=== PATIENT | female | born 1955 | race African-American/Black ===

== ENCOUNTER → 2018-01-01 | Outpatient (CLI) | payer MEDICARE | END | disposition home or self-care (01) | LOC: CVU 10:33 | PROVIDERS: ATTEND Family Medicine | DX: I07.1 Rheumatic tricuspid insufficiency (principal); I50.32 Chronic diastolic (congestive) heart failure; J44.9 Chronic obstructive pulmonary disease, unspecified; G47.33 Obstructive sleep apnea (adult) (pediatric); E66.01 Morbid (severe) obesity due to excess calories | CPT/HCPCS: 93306 ==

== ENCOUNTER 2018-05-27 13:03 | Inpatient (IN) | payer MEDICARE ==
[~2018-05-27] VITALS: Ht 167.6 cm; Wt 173.1 kg
[2018-05-27] MEDS ORDERED: SODIUM CHLORIDE FLUSH 10ML SYR IVF ONE (13:30)
[2018-05-27] MEDS ORDERED: PLEASE ENTER ALLERGIES MC SCH (13:30)
[2018-05-27] MEDS ORDERED: methylPREDNISolone SOD SUCC 125 MG/2 ML IVP ONE (13:30)
[2018-05-27] MEDS ORDERED: methylPREDNISolone SOD SUCC 125 MG/2 ML ONE (13:34)
[2018-05-27 13:41] LABS: BASOPHILS # (AUTO) 0.03 x10^3/uL (0-0.1); BASOPHILS % (AUTO) 1 % (0-1); EOSINOPHILS # (AUTO) 0.33 x10^3/uL (0-0.4); EOSINOPHILS % (AUTO) 6 % (1-7); LYMPHOCYTES # (AUTO) 1.04 x10^3/uL (1-3.4); LYMPHOCYTES % (AUTO) 18 % (22-44); MD NO; MEAN CORPUSCULAR HGB CONC 32.5 g/dL (32.4-35.8); MEAN PLATELET VOLUME 7.9 fL (7.4-10.4); MONOCYTES # (AUTO) 0.64 x10^3/uL (0.2-0.8); MONOCYTES % (AUTO) 11 % (2-9); NEUTROPHILS % (AUTO) 65 % (42-75); PLATELET COUNT 272 x10^3/uL (130-400); RED BLOOD COUNT 5.56 x10^6/uL (3.82-5.3); RED CELL DISTRIBUTION WIDTH 14.3 % (9.6-15.2)
[2018-05-27 13:49] LABS: ALBUMIN 3.2 g/dL (3.4-5.0); ANION GAP 8 mmol/L (5-15); CALCIUM 8.5 mg/dL (8.5-10.1); CHLORIDE 101 mmol/L (98-107)
[2018-05-27 13:55] LABS: ALANINE AMINOTRANSFERASE 27 U/L (12-78); ALKALINE PHOSPHATASE 123 U/L (45-117); BILIRUBIN,TOTAL 0.4 mg/dL (0.2-1.0); CREATININE 0.86 mg/dL (0.55-1.02)
[2018-05-27] MEDS ORDERED: ALBUTEROL SULFATE 2.5 MG/3 ML NPPB ONE (14:30)
[2018-05-27] MEDS ORDERED: ALBUTEROL SULFATE 2.5 MG/3 ML ONE (14:47)
[2018-05-27] MEDS ORDERED: ALBUTEROL/IPRATROPIUM 2.5MG/0.5MG, 3 ML NPPB SCH (15:00)
[2018-05-27] MEDS: AZITHROMYCIN 500 MG in SODIUM CHLORIDE 0.9% 250 ML IV SCH (15:40)
[2018-05-27] MEDS ORDERED: FUROSEMIDE 20 MG TABLET PO SCH (17:00)
[2018-05-27] MEDS ORDERED: SPIR50TA4 PO (17:10)
[2018-05-27] MEDS ORDERED: POTA99TA8 PO (17:10)
[2018-05-27] MEDS ORDERED: FURO80TA3 PO (17:10)
[2018-05-27] MEDS: ENOXAPARIN 40 MG/0.4 ML SQ SCH (17:11)
[2018-05-27 17:13] VITALS: BP 119/83
[2018-05-27 18:50] LABS: RAPID INFLUENZA A Negative (Negative); RAPID INFLUENZA B Negative (Negative)
[2018-05-27] MEDS: ALBUTEROL/IPRATROPIUM 2.5MG/0.5MG, 3 ML NPPB SCH (20:31)
[2018-05-27] MEDS ORDERED: BUDESONIDE 0.5 MG/2 ML INHA INH SCH (21:00)
[2018-05-27] MEDS: methylPREDNISolone SOD SUCC 40 MG/ML IVPush SCH (22:42)
[2018-05-27 22:49] VITALS: BP 138/69
[2018-05-27] MEDS: GUAIFENESIN/DM 200-20MG, 10ML UDC PO PRN (23:06)
[2018-05-28] MEDS: ALBUTEROL/IPRATROPIUM 2.5MG/0.5MG, 3 ML NPPB SCH ×5 (03:07→20:00)
[2018-05-28 03:17] VITALS: BP 118/76
[2018-05-28] MEDS: GUAIFENESIN/DM 200-20MG, 10ML UDC PO PRN ×2 (03:42→22:55)
[2018-05-28] MEDS: methylPREDNISolone SOD SUCC 40 MG/ML IVPush SCH ×2 (05:35→17:48)
[2018-05-28] MEDS ORDERED: FUROSEMIDE 20 MG TABLET PO SCH (08:00)
[2018-05-28] MEDS ORDERED: FUROSEMIDE 40 MG TABLET PO SCH ×2 (09:00→13:00)
[2018-05-28] MEDS: FLUTICASONE/VILANTEROL 100-25MCG/INH INH SCH (09:00)
[2018-05-28] MEDS ORDERED: SPIRONOLACTONE 50 MG TABLET PO SCH (09:00)
[2018-05-28 09:07] VITALS: BP 126/69
[2018-05-28] MEDS ORDERED: IPRA3AMP30 NPPB (10:27)
[2018-05-28] MEDS: SPIRONOLACTONE 50 MG TABLET PO SCH ×2 (12:49→20:38)
[2018-05-28 13:05] VITALS: BP 124/70
[2018-05-28] MEDS: AZITHROMYCIN 500 MG in SODIUM CHLORIDE 0.9% 250 ML IV SCH (15:01)
[2018-05-28] MEDS: POTASSIUM CHLORIDE 10 MEQ TABLET.ER PO SCH (17:10)
[2018-05-28] MEDS: ENOXAPARIN 40 MG/0.4 ML SQ SCH (17:10)
[2018-05-28 19:29] VITALS: BP 115/75
[2018-05-28] MEDS ORDERED: ATOR40TA78 PO (20:52)
[2018-05-28] MEDS: ATORVASTATIN 40 MG HOMEMEDPO SCH (22:51)
[2018-05-29 00:47] VITALS: BP 102/67
[2018-05-29] MEDS ORDERED: ALBUTEROL/IPRATROPIUM 2.5MG/0.5MG, 3 ML NPPB PRN (03:30)
[2018-05-29] MEDS: methylPREDNISolone SOD SUCC 40 MG/ML IVPush SCH ×2 (06:18→17:38)
[2018-05-29 08:00] VITALS: BP 129/67
[2018-05-29] MEDS: ALBUTEROL/IPRATROPIUM 2.5MG/0.5MG, 3 ML NPPB SCH ×4 (08:06→19:01)
[2018-05-29] MEDS: FLUTICASONE/VILANTEROL 100-25MCG/INH INH SCH (09:03)
[2018-05-29] MEDS: GUAIFENESIN/DM 200-20MG, 10ML UDC PO PRN (09:06)
[2018-05-29] MEDS: FUROSEMIDE HOMEMEDPO SCH (09:10)
[2018-05-29] MEDS: SPIRONOLACTONE 50 MG HOMEMEDPO SCH ×2 (09:10→20:31)
[2018-05-29 13:00] VITALS: BP 115/71
[2018-05-29] MEDS: AZITHROMYCIN 500 MG in SODIUM CHLORIDE 0.9% 250 ML IV SCH (15:49)
[2018-05-29] MEDS: ENOXAPARIN 40 MG/0.4 ML SQ SCH (17:38)
[2018-05-29] MEDS: POTASSIUM CHLORIDE 10 MEQ TABLET.ER PO SCH (17:38)
[2018-05-29 20:15] VITALS: BP 100/71
[2018-05-29] MEDS: ATORVASTATIN 40 MG HOMEMEDPO SCH (20:32)
[2018-05-30] MEDS: GUAIFENESIN/DM 200-20MG, 10ML UDC PO PRN (00:38)
[2018-05-30 01:44] VITALS: BP 107/66
[2018-05-30] MEDS: methylPREDNISolone SOD SUCC 40 MG/ML IVPush SCH (05:52)
[2018-05-30 07:30] VITALS: BP 144/86
[2018-05-30] MEDS: ALBUTEROL/IPRATROPIUM 2.5MG/0.5MG, 3 ML NPPB SCH ×3 (08:15→14:35)
[2018-05-30] MEDS ORDERED: METH4TAB2 PO (10:35)
[2018-05-30] MEDS ORDERED: AZIT500T PO (10:35)
[2018-05-30] MEDS ORDERED: FLUT1AER INH (10:45)
[2018-05-30] MEDS: FLUTICASONE/VILANTEROL 100-25MCG/INH INH SCH (11:09)
[2018-05-30] MEDS: SPIRONOLACTONE 50 MG HOMEMEDPO SCH (11:10)
[2018-05-30] MEDS: FUROSEMIDE HOMEMEDPO SCH (11:10)
[2018-05-30 13:00] VITALS: BP 158/86
== END 2018-05-30 15:12 | disposition home or self-care (01) | DRG 189 ==
LOC: ED 14:06 → EDIP 14:18 → 3NE 15:55
PROVIDERS: ADMIT Hospitalist; ATTEND Hospitalist
PROC: 5A09357 Assistance with Respiratory Ventilation, Less than 24 Consecutive Hours, Continuous Positive Airway Pressure (ICD-10-PCS; 2018-05-29)
PROC: 5A09357 Assistance with Respiratory Ventilation, Less than 24 Consecutive Hours, Continuous Positive Airway Pressure (ICD-10-PCS; principal; 2018-05-30)
DX: J96.20 Acute and chronic respiratory failure, unspecified whether with hypoxia or hypercapnia (principal); J44.1 Chronic obstructive pulmonary disease with (acute) exacerbation; I27.20 Pulmonary hypertension, unspecified; G47.33 Obstructive sleep apnea (adult) (pediatric); E11.9 Type 2 diabetes mellitus without complications; I50.9 Heart failure, unspecified; Z87.891 Personal history of nicotine dependence; Z99.81 Dependence on supplemental oxygen
CPT/HCPCS: 36415; 71045; 80053; 83880; 84145; 85025; 87205; 87400; 93005; 94640; 94660; 96374; 99285; G0378; J0456; J1650; J7613; J7620; J2920; J2930; J7050

== ENCOUNTER → 2018-06-24 | Outpatient (CLI) | payer MEDICARE ==
[~2018-06-24] MED LIST: ATOR40TA78 PO; AZIT500T PO; FLUT1AER INH; FURO80TA3 PO; IPRA3AMP30 NPPB; METH4TAB2 PO; POTA99TA8 PO; SPIR50TA4 PO
== END | disposition home or self-care (01) ==
LOC: CARD 12:47
PROVIDERS: ATTEND Internal Medicine Cardiovascular Disease
DX: J44.9 Chronic obstructive pulmonary disease, unspecified (principal); I27.21 Secondary pulmonary arterial hypertension
CPT/HCPCS: 94060; 94726; 94729

== ENCOUNTER → 2018-06-28 | Outpatient (CLI) | payer MEDICARE | END | disposition home or self-care (01) | LOC: RAD 09:33 | PROVIDERS: ATTEND Internal Medicine Cardiovascular Disease | DX: I27.21 Secondary pulmonary arterial hypertension (principal); R06.02 Shortness of breath | CPT/HCPCS: 71045; 78582; A9540; A9558 ==

== ENCOUNTER → 2020-05-30 | Outpatient (CLI) | payer MEDICARE | END | disposition home or self-care (01) | LOC: CVU 08:33 | PROVIDERS: ATTEND Internal Medicine Cardiovascular Disease | DX: I08.8 Other rheumatic multiple valve diseases (principal); E78.5 Hyperlipidemia, unspecified; J44.9 Chronic obstructive pulmonary disease, unspecified; I27.23 Pulmonary hypertension due to lung diseases and hypoxia; Z87.891 Personal history of nicotine dependence | CPT/HCPCS: 93306; 93356 ==